=== PATIENT | male | born 1965 | race Caucasian/White ===

== ENCOUNTER 2017-07-30 20:20 | Emergency (ER) | payer SELFPAY ==
[2017-07-30] MEDS ORDERED: Ondansetron HCl/PF 4 MG/2 ML Vial ONE (21:58)
--- NOTE | 2017-07-30 22:45 | ULT ---
SCROTAL SONOGRAM WITH DUPLEX EVALUATION: 07/30/17 HISTORY: Right groin pain and mass. FINDINGS: Right testicle is 4.7 cm and left is 4.6 cm. Small cyst is noted within the right testicle. Each demo nstrates good color and spectral doppler flow. Small cysts are associated with each epididymis. Dilated vascular structures within each side of the scrotum become more dilated upon Valsalva maneuve r. At the right inguinal canal, peristalsing structure protrudes upon Valsalva maneuver. IMPRESSION: 1. Small right inguinal hernia containing bowel. 2. Small bilateral varicoceles. POS: [facility]
== END 2017-07-30 23:35 | disposition home or self-care (01) ==
LOC: ERS 20:20
DX: K40.90 Unilateral inguinal hernia, without obstruction or gangrene, not specified as recurrent (principal); I10 Essential (primary) hypertension; F17.210 Nicotine dependence, cigarettes, uncomplicated
CPT/HCPCS: 76870; 96374; 96375; 99406; J2270; J2405

== ENCOUNTER 2017-09-13 06:15 | Observation (INO) | payer SELFPAY ==
[2017-09-13 06:55] LABS: #Eosinphils 0.4 thou/uL (0.0-0.7); #Lymphocytes 1.8 thou/uL (1.20-3.40); #Monocytes 0.7 thou/uL (0.11-0.59); #Neutrophils 7.3 thou/uL (1.40-6.50); %Basophils 0.4 % (0.0-1.0); %Eosinophils 4.2 % (0.0-10.0); %Lymphocytes 17.7 % (21.0-51.0); %Monocytes 6.6 % (0.0-10.0); %Neutrophils 71.1 % (42.0-75.0); Hemoglobin 15.8 g/dL (14.0-18.0); Mean Corpuscular HGB CONC 34.3 g/dL (32.0-36.0); Mean Corpuscular Hemoglobin 29.7 pg (27.0-31.0); Mean Corpuscular Volume 86.6 fl (80.0-94.0); Mean Platelet Volume 7.4 fL (7.4-10.4); Platelet Count 223 thou/uL (130-400); RBC Distribution Width 12.3 % (11.5-14.5); Red Blood Cell (RBC) Count 5.31 mill/uL (4.70-6.10); White Blood Cell (WBC) Count 10.3 thou/uL (4.8-10.8)
[2017-09-13 07:10] LABS: ALT (SGPT) 34 U/L (8-55); AST (SGOT) 21 U/L (5-34); Albumin 4.1 g/dL (3.5-5.0); Alkaline Phosphatase 87 U/L (40-150); Anion Gap 14 mmol/L (10-20); BUN (Urea Nitrogen) 13 mg/dL (8.4-25.7); Bilirubin, Total 0.6 mg/dL (0.2-1.2); CK (CPK) 45 U/L (30-200); Calc. Creatinine Clearance 0 mL/min (70-130); Calcium 9.3 mg/dL (7.8-10.44); Carbon Dioxide 23 mmol/L (22-29); Chloride 104 mmol/L (98-107); Estimated GFR-MDRD 88; Globulin 2.9 g/dL (2.4-3.5); Glucose 107 mg/dL (70-105); Lipase 48 U/L (8-78); Potassium 4.1 mmol/L (3.5-5.1); Sodium 137 mmol/L (136-145)
[2017-09-13 07:11] LABS: Acetaminophen Less than 6.0 mcg/mL (10.0-30.0); Alcohol Less than 10 mg/dL (Less than 10); Salicylate Less than 8.0 mg/dL (15.0-30.0)
[2017-09-13 07:15] LABS: CKMB 1.1 ng/mL (0-6.6); Troponin I Less than 0.010 ng/mL (< 0.028)
[2017-09-13 07:27] LABS: Bilirubin Negative (Negative); Blood, Urine Negative (Negative); Clarity CLEAR (Clear); Glucose, Urine (Dipstick) Negative (Negative); Leukocyte Negative (Negative); Nitrite Negative (Negative); Protein, Urine (Dipstick) Negative (Neg-Trace); Specific Gravity, Urine 1.015 (1.002-1.036); Urobilinogen 0.2 mg/dL (0.2-1.0); pH, Urine 6.5 (5.0-9.0)
[2017-09-13 07:42] LABS: Amphetamine Not Detected (NotDetected); Barbiturates Screen Not Detected (NotDetected); Benzodiazepine Screen Not Detected (NotDetected); Cocaine Metabolite Screen Not Detected (NotDetected); Medtox Control Line Valid? VALID (VALID); Medtox Reader # READER 1; Methadone Not Detected (NotDetected); Methamphetamine Not Detected (NotDetected); Opiate Screen Detected (NotDetected); Oxycodone Screen Not Detected (NotDetected); Phencyclidine (PCP) Not Detected (NotDetected); THC/Cannabinoid Screen Not Detected (NotDetected); Tricyclic Screen Not Detected (NotDetected)
--- NOTE | 2017-09-13 07:50 | PDOC.FPRHP ---
- History of Present Illness Chief Complaint: chest pain History of Present Illness: Patient comes in with chest pain that started at 0000 tonight while he was walking to the grocery store. He has history LA x2, earliest at age 19 and second at age 30 for which he received cath with no stents. He described the pain as sharp and crushing left side chest pain. He states the pain was 9/10 and was relived by nitro paste and morphine. He is a current 1ppd smoker for last 30 years. He has a history of meth use, states he has not used in 2 mo. ED Course: ASA, nitro, lisinopril - Allergies/Adverse Reactions Allergies Allergy/AdvReac Type Severity Reaction Status Date / Time No Known Allergies Allergy Verified 09/13/17 08:28 - Home Medications Medication Instructions Recorded Confirmed Type Lisinopril 10 mg PO DAILY 09/13/17 09/13/17 History - History PMHx: HTN, CAD PSHx: LA x2 without stents FHx:non-contributory Social:smokes less than a pack a day, no etoh, occasional methamphatamine use ( last 2-3) months ago - Review of Systems General: denies: fever/chills, night sweats, fatigue Eyes: denies: eye pain, vision changes ENT: denies: nasal congestion, rhinorrhea Respiratory: denies: cough, congestion, shortness of breath Cardiovascular: reports: chest pain. denies: palpitation, edema Gastrointestinal: denies: nausea, vomiting, diarrhea, constipation, abdominal pain, GI bleeding Genitourinary: denies: dysuria, polyuria Skin: denies: rashes, lesions Musculoskeletal: denies: pain, arthritis/arthralgias Neurological: denies: numbness, weakness Psychological: denies: anxiety, depression - Vital signs BP: 139/82 HR: 68 RR: 16 Tmax: 97.8 Pox: 96% on 2L Wt: 102kg FMR H&P: Results - Labs Result Diagrams: 09/13/17 06:42 09/13/17 06:42 Lab results: WBC 10.3 thou/uL (4.8-10.8) 09/13/17 06:42 Hgb 15.8 g/dL (14.0-18.0) 09/13/17 06:42 Hct 46.0 % (42.0-52.0) 09/13/17 06:42 MCV 86.6 fl (80.0-94.0) 09/13/17 06:42 Plt Count 223 thou/uL (130-400) 09/13/17 06:42 Neutrophils % 71.1 % (42.0-75.0) 09/13/17 06:42 Sodium 137 mmol/L (136-145) 09/13/17 06:42 Potassium 4.1 mmol/L (3.5-5.1) 09/13/17 06:42 Chloride 104 mmol/L (98-107) 09/13/17 06:42 Carbon Dioxide 23 mmol/L (22-29) 09/13/17 06:42 BUN 13 mg/dL (8.4-25.7) 09/13/17 06:42 Creatinine 0.90 mg/dL (0.6-1.3) 09/13/17 06:42 Glucose 107 mg/dL (70-105) H 09/13/17 06:42 Calcium 9.3 mg/dL (7.8-10.44) 09/13/17 06:42 Total Bilirubin 0.6 mg/dL (0.2-1.2) 09/13/17 06:42 AST 21 U/L (5-34) 09/13/17 06:42 ALT 34 U/L (8-55) 09/13/17 06:42 Alkaline Phosphatase 87 U/L (40-150) 09/13/17 06:42 Creatine Kinase 45 U/L (30-200) 09/13/17 06:42 CK-MB (CK-2) 1.1 ng/mL (0-6.6) 09/13/17 06:41 B-Natriuretic Peptide 23.8 pg/mL (0-100) 09/13/17 06:42 Serum Total Protein 7.0 g/dL (6.0-8.3) 09/13/17 06:42 Albumin 4.1 g/dL (3.5-5.0) 09/13/17 06:42 Lipase 48 U/L (8-78) 09/13/17 06:42 Urine Ketones Negative mg/dL (Negative) 09/13/17 07:00 Urine Blood Negative (Negative) 09/13/17 07:00 Urine Nitrite Negative (Negative) 09/13/17 07:00 Ur Leukocyte Esterase Negative (Negative) 09/13/17 07:00 FMR H&P: A/P - Problem List (1) Chest pain, rule out acute myocardial infarction Current Visit: Yes Status: Acute Code(s): R07.9 - CHEST PAIN, UNSPECIFIED (2) HTN (hypertension) Current Visit: Yes Status: Acute Code(s): I10 - ESSENTIAL (PRIMARY) HYPERTENSION (3) Methamphetamine abuse Current Visit: Yes Status: Acute Code(s): F15.10 - OTHER STIMULANT ABUSE, UNCOMPLICATED (4) Tobacco abuse counseling Current Visit: Yes Status: Acute Code(s): Z71.6 - TOBACCO ABUSE COUNSELING - Plan # Chest pain r/o - typical chest pain, reproducible with pressure on chest - strong history, smoker, meth use, hx of LA x2 - trop neg x2, trend - stress test - CXR negative - ASA - nitro PRN # HTN - lisinopril 10mg # Meth abuse - UDS - states has not used in 2mo # Tobacco abuse - nitro patch - continue to encourage cessation diet: npo until after stress fluids: NS 100ml/hr Code: full Ppx: scd, lovenox Dispo: 1-2 days pending stress FMR H&P: Upper Level - Pertinent history Patient was walking home from store and he had pressure like chest pain that radiated to neck and left arm. associated with shortness of breath and chest pain. significant nausea with event. Patient now has a mild headache, but his other symptoms are resolved. Last LA was 25 years ago. - Pertinent findings Gen: WD/WN male in no acute distress HEENT: NC/AT, JASVIR,EOMI, MMM Resp: CTA, normal work of breathing Chest- tender to palpation in MARIELA chest CV: RRR, normal S1, S2, no murmur ABD: Soft nontender, nondistended Extremities: no edema, pulses 2+ Psych: calm, normal affect and mood Neuro-CN intact, normal strength and sensation Trops neg x2 EKG- normal sinus with partial RBBB. No ischemic changes CXR- negative - Plan Date/Time: 09/13/17 0748 Yaneth Reardon, have evaluated this patient and agree with findings/plan as outlined by customer operations intern resident. Pertinent changes/additions are listed here. 1.Typical chest pain, improved, RO ACS- Patient has features of typical chest pain such as pressure like, radiation, SOB and sweating. Some atypical features like reproducibility to palpation and with no changes to EKG or troponin. Minimially symptomatic at this time. We will trend troponins, wait on UDS, and do a stress test with nuclear imaging. If positive or new symptoms arise, will consult cardiology. 2.CAD- regardless of work up, will discharge patient on statin and asa with plan to set him up with new PCP and recommend outpatient cardiology. 3.HTN- will continue patients home Lisinopril 4.Tobacco abuse- counseled on continued risk Attending Addendum - Attending Addendum Date/Time: 09/13/17 2055 I personally evaluated the patient and discussed the management with Dr. Spencer and Dr. Sky. I agree with the History, Examination, Assessment and Plan documented above with any addition or exceptions noted below. Mr. Alfaro is a 52 y/o male who presented with a history of pressure left/mid parasternal chest pain that radiated to neck and left arm and was associated with shortness of breath, left arm numbness and nausea while walking home from the store. Troponins are negative. PMHx positive for Acute LA at age 27 and age 30. Never had PCI or CABG. 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 Lungs: CTA. Cor: RRR, normal S1, S2, no murmurs, clicks, gallops or rub ABD: Soft non-tender, non-distended, no hepatosplenomegaly Extremities: no edema, pulses 2+ Psych: calm, normal affect and mood Neuro-no focal deficits, alert and oriented x4 Troponins neg x2 EKG- NSR with partial RBBB. No ischemic ST-T changes CXR- negative A: Chest pain typical for ischemia. Negative troponinis. CAD with hx of Acute LA at ages 27 & 29 Tobacco Smoking abuse Methamphetamine use.- not recent. P: Stress test today, 2d portion tomorrow. Continue telemetry monitoring. MD Michelle
[2017-09-13] MEDS ORDERED: Nitroglycerin 0.4 MG TAB (25 Tab Bottle) PO PRN (08:10)
[2017-09-13] MEDS ORDERED: Ondansetron HCl/PF 4 MG/2 ML Vial IVP PRN (08:10)
[2017-09-13 08:24] VITALS: BMI 28.9
[2017-09-13] MEDS ORDERED: Aspirin 325 MG TAB PO SCH (08:45)
[2017-09-13 08:46] LABS: Cardiac Risk 4.8 (Less than 4.5)
[2017-09-13] MEDS: Acetaminophen 325 MG TAB PO PRN (09:38)
[2017-09-13] MEDS: Nicotine 21 MG PATCH TD SCH (09:39)
[2017-09-13] MEDS: Sodium Chloride 0.9% 1,000 ML IV SCH ×2 (09:39→18:13)
[2017-09-13 10:46] LABS: Troponin I Less than 0.010 ng/mL (< 0.028)
[2017-09-13] MEDS: Enoxaparin Sodium 40 MG/0.4 ML SYRINGE SC SCH (12:33)
[2017-09-13] MEDS: Nitroglycerin 2% Ointment 1 INCH/1 GM Packet TOP SCH ×2 (13:41→20:24)
[2017-09-13] MEDS ORDERED: hydrALAZINE 20 MG/ML VIAL SLOW IVP PRN (17:49)
[2017-09-13] MEDS ORDERED: Atorvastatin Calcium 40 MG TAB PO SCH (21:00)
[2017-09-14 04:56] LABS: #Eosinphils 0.5 thou/uL (0.0-0.7); #Monocytes 0.7 thou/uL (0.11-0.59); #Neutrophils 6.9 thou/uL (1.40-6.50); %Basophils 0.4 % (0.0-1.0); %Eosinophils 5.2 % (0.0-10.0); %Lymphocytes 19.9 % (21.0-51.0); %Neutrophils 67.5 % (42.0-75.0); Hemoglobin 16.4 g/dL (14.0-18.0); Mean Corpuscular HGB CONC 33.3 g/dL (32.0-36.0); Mean Corpuscular Hemoglobin 29.4 pg (27.0-31.0); Mean Corpuscular Volume 88.3 fl (80.0-94.0); Platelet Count 233 thou/uL (130-400); RBC Distribution Width 12.4 % (11.5-14.5); Red Blood Cell (RBC) Count 5.56 mill/uL (4.70-6.10); White Blood Cell (WBC) Count 10.3 thou/uL (4.8-10.8)
[2017-09-14 05:13] LABS: Anion Gap 9 mmol/L (10-20); BUN (Urea Nitrogen) 17 mg/dL (8.4-25.7); Calc. Creatinine Clearance 123 mL/min (70-130); Calcium 9.7 mg/dL (7.8-10.44); Carbon Dioxide 28 mmol/L (22-29); Chloride 105 mmol/L (98-107); Estimated GFR-MDRD 80; Glucose 99 mg/dL (70-105); Potassium 4.3 mmol/L (3.5-5.1); Sodium 138 mmol/L (136-145)
[2017-09-14] MEDS: Nitroglycerin 2% Ointment 1 INCH/1 GM Packet TOP SCH ×2 (05:30→14:19)
--- NOTE | 2017-09-14 07:22 | PDOC.FM ---
- Subjective Subjective: CC: Occasional chest pain HPI: states he had 2 brief episodes of chest pain that awoke him from sleep last night. Otherwise no problems. Still waiting on stress test. - Objective MAR Reviewed: Yes Vital Signs & Weight: Vital Signs (12 hours) Temp Pulse Resp BP BP Pulse Ox 09/14/17 05:39 94 L 09/14/17 04:36 98.2 F 80 17 165/76 H 95 09/13/17 23:58 74 20 172/77 H 93 L 09/13/17 20:00 98 F 88 20 Weight Weight 100.788 kg I&O: 09/13/17 09/14/17 09/15/17 06:59 06:59 06:59 Intake Total 1885 Output Total 3150 Balance -1265 Result Diagrams: 09/14/17 04:11 09/14/17 04:11 <Rito Cagle - Last Filed: 09/14/17 07:55> - Objective Vital Signs & Weight: Vital Signs (12 hours) Temp Pulse Resp BP BP Pulse Ox 09/14/17 09:32 98.3 F 79 18 09/14/17 09:22 160/82 H 09/14/17 07:31 98.3 F 79 18 174/92 H 96 09/14/17 05:39 94 L 09/14/17 04:36 98.2 F 80 17 165/76 H 95 Weight Weight 100.788 kg I&O: 09/13/17 09/14/17 09/15/17 06:59 06:59 06:59 Intake Total 1885 Output Total 3150 350 Balance -1265 -350 Result Diagrams: 09/14/17 04:11 09/14/17 04:11 <Ajay Chu - Last Filed: 09/14/17 14:33> Phys Exam - Physical Examination Constitutional: NAD HEENT: moist MMs, sclera anicteric Respiratory: no wheezing, clear to auscultation bilateral Cardiovascular: RRR, no significant murmur Gastrointestinal: soft, non-tender Musculoskeletal: no edema Neurological: non-focal, moves all 4 limbs Psychiatric: normal affect, A&O x 3 <Rito Cagel - Last Filed: 09/14/17 07:55> Dx/Plan (1) Chest pain, rule out acute myocardial infarction Code(s): R07.9 - CHEST PAIN, UNSPECIFIED Status: Acute Plan: Day 2 of stress test. Had resting portion completed yesterday but stress lab was booked. - f/u results of NM stress test. - d/c vs. cards consult pending results. (2) HTN (hypertension) Code(s): I10 - ESSENTIAL (PRIMARY) HYPERTENSION Status: Acute QualifierTitle: Hypertension type: essential hypertension Qualified Code( s): I10 - Essential (primary) hypertension Plan: did not receive daily lisinopril yesterday. Will give today and monitor. (3) Methamphetamine abuse Code(s): F15.10 - OTHER STIMULANT ABUSE, UNCOMPLICATED Status: Acute Plan: UDS negative. (4) Tobacco abuse counseling Code(s): Z71.6 - TOBACCO ABUSE COUNSELING Status: Acute <Rito Cagle - Last Filed: 09/14/17 07:55> (1) Chest pain, rule out acute myocardial infarction Code(s): R07.9 - CHEST PAIN, UNSPECIFIED Status: Acute (2) HTN (hypertension) Code(s): I10 - ESSENTIAL (PRIMARY) HYPERTENSION Status: Acute Qualifiers: Hypertension type: essential hypertension Qualified Code(s): I10 - Essential (primary) hypertension (3) Methamphetamine abuse Code(s): F15.10 - OTHER STIMULANT ABUSE, UNCOMPLICATED Status: Acute (4) Tobacco abuse counseling Code(s): Z71.6 - TOBACCO ABUSE COUNSELING Status: Acute <Ajay Chu - Last Filed: 09/14/17 14:33> Attending Addendum - Attending Addendum Date/Time: 09/14/17 1976 I personally evaluated the patient and discussed the management with Dr. Cagle. I agree with the History, Examination, Assessment and Plan documented above with any addition or exceptions noted below. He complains of left sided neck pain worse with ROM and Right lower ant. chest over the ribs. BP systolic in 160s-170s, otherwise V/S stable normal. Pain in Left post neck muscles with touch chin to L shoulder. Lungs; CTA Cor: RRR, no murmur, gallop, click or rub. Tender R lower anterior rib margin to palpation. A: Costochondritis, Musculoskeletal Neck pain. Chest pain, CAD with prior history of heart attack ages 27 and 29. 2 stage stress test taken, but results still pending. P: Encouraged tobacco cessation, ASA 81 mg daily, and control Cholesterol with diet plus Statin medications. He expresses understanding and willingness to comply. Michelle GRIMALDO <Ajay Chu - Last Filed: 09/14/17 14:33>
[2017-09-14] MEDS: Nicotine 21 MG PATCH TD SCH (08:50)
[2017-09-14] MEDS ORDERED: Lisinopril 10 MG TAB PO SCH (09:00)
[2017-09-14] MEDS ORDERED: Aspirin 81 mg Enteric Coated Tablet PO SCH (09:00)
[2017-09-14] MEDS ORDERED: ADENOSINE 60 MG/20 ML VIAL ONE (12:06)
--- NOTE | 2017-09-14 13:50 | NM ---
MYOCARDIAL PERFUSION EVALUATION: INDICATION: Atypical chest pain with a history of AR status post catheterization. History of hypertension and sm oking. RADIOPHARMACEUTICAL: 27.5 mCi Technetium 99m sestamibi IV with stress and 9.7 mCi Technetium 99m sestamibi IV with rest. FINDINGS: No reversible myocardial perfusion defect was evident. There is normal wall motion and thickening. The estimated LVEF is 59%. There was left ventricular dilatation present. IMPRESSION: 1. No definite scintigraphic evidence of reversible myocardial ischemia. 2. Mild left ventricular dilatation. 3. Estimated left ventricular ejection fraction of 59%. POS: [facility]
[2017-09-14] MEDS: Enoxaparin Sodium 40 MG/0.4 ML SYRINGE SC SCH (14:06)
[2017-09-14] MEDS: Acetaminophen 325 MG TAB PO PRN (14:07)
[2017-09-14 15:56] VITALS: BP 156/76; TEMP 97.9
--- NOTE | 2017-09-16 09:19 | DIS-2 ---
DATE OF ADMISSION: 09/13/2017 DATE OF DISCHARGE: 09/14/2017 RESIDENT: Rito Cagle M.D. ADMITTING ATTENDING: Ajay Chu M.D. DISCHARGE ATTENDING: Ajay Chu M.D. PROCEDURES: None. IMAGING: Nuclear medicine stress test on 09/14/2017 showed no evidence of reversible myocardial ischemia, mild left ventricular dilation with an estimated left ventricular ejection fraction of 51%. PERTINENT LABORATORY FINDINGS: Troponins and CK-MB negative x3. Fasting lipid panel with triglycerides 185, cholesterol 209, LDL 128, and HDL 24, UDS positive for opiates; however, the patient received morphine in the outside ER. PRIMARY DIAGNOSES: 1. Atypical chest pain, acute coronary syndrome, ruled out. 2. Likely costochondritis versus pleurisy. SECONDARY DIAGNOSES: 1. Hypertension. 2. Occasional methamphetamine use. 3. Tobacco abuse. DISCHARGE MEDICATIONS: 1. Aspirin 81 mg daily. 2. Lipitor 40 mg at bedtime. 3. Lisinopril 10 mg daily. 4. Nitroglycerin 0.4 mg every 5 minutes as needed. DISCONTINUED Medications: None. HISTORY OF PRESENT ILLNESS AND HOSPITAL COURSE: Mr. Alfaro is a pleasant 52-year- old male, who was transferred from the [place] ER with chest pain that began approximately 8 hours prior to arrival. He has had history of 2 previous myocardial infarction, at age 19 and age 30. He states pain is similar to chest pain experienced with his previous myocardial infarctions. He was admitted for observation and inpatient nuclear medicine stress test. Stress test was negative and troponins were negative x3. Vital signs showed mildly uncontrolled hypertension. It was recommended that he followup as an outpatient for further management. Vital signs at time of discharge were stable. He was in agreement with this plan. DISPOSITION: Stable. DISCHARGE INSTRUCTIONS: 1. Location: Home. 2. Diet: Heart healthy, low sodium. 3. Activity: As tolerated. 4. Followup: The patient is to follow up with primary care physician within 1 week for blood pressure management. JASE
== END 2017-09-14 17:54 | disposition home or self-care (01) ==
LOC: ERS 06:15 → 2SW 07:24
PROVIDERS: ADMIT Family Medicine; ATTEND Family Medicine
DX: R07.89 Other chest pain (principal); F17.210 Nicotine dependence, cigarettes, uncomplicated; I10 Essential (primary) hypertension; I25.2 Old myocardial infarction; I25.10 Atherosclerotic heart disease of native coronary artery without angina pectoris; F15.10 Other stimulant abuse, uncomplicated; Z79.899 Other long term (current) drug therapy
CPT/HCPCS: 36415; 78452; 80048; 80053; 80061; 80306; 80307; 81003; 82550; 82553; 83690; 83880; 84484; 85025; 90471; 90732; 93005; 93017; 94760; 96361; 96372; 96374; A9500; G0009; G0378; J0153; J0360; J1650